=== PATIENT | female | born 1990 | race African-American/Black ===

== ENCOUNTER 2021-06-04 06:17 | Inpatient (IN) ==
[2021-06-04] MEDS ORDERED: LR 1,000 ML IV 1,000 ML IV ONE ×2 (06:39→07:09)
[2021-06-04] MEDS ORDERED: ANCEF 1 GRAM IV PREMIX* 2 G/100 ML BAG IV ONE (06:40)
[2021-06-04] MEDS ORDERED: ZOFRAN INJ 4 MG VIAL ONE (07:02)
[2021-06-04] MEDS ORDERED: PEPCID 20 MG IV PREMIX* 50 ML IV ONE (07:02)
[2021-06-04] MEDS ORDERED: REGLAN INJ 10 MG VIAL ONE (07:02)
[2021-06-04] MEDS ORDERED: TORADOL 30 MG VIAL IVP PRN ×2 (07:03→10:03)
[2021-06-04] MEDS ORDERED: ANCEF VIAL 1 GRAM IVP ONE (07:06)
[2021-06-04] MEDS ORDERED: PEPCID 20 MG IV PREMIX* 20 MG/50 ML BAG IV ONE (07:09)
[2021-06-04] MEDS ORDERED: REGLAN INJ 10 MG VIAL IVP ONE (07:10)
[2021-06-04] MEDS ORDERED: ZOFRAN INJ 4 MG VIAL IVP ONE (07:10)
[2021-06-04] MEDS ORDERED: DECADRON INJ ONE (07:21)
[2021-06-04] MEDS ORDERED: DILAUDID INJ ONE (07:22)
[2021-06-04] MEDS ORDERED: NS 1,000 ML IV 1,000 ML ONE (07:22)
[2021-06-04] MEDS: ZOFRAN INJ 4 MG VIAL IVP PRN ×2 (07:28→16:00)
[2021-06-04 07:50] LABS: BILIRUBIN,URINE NEGATIVE (NEGATIVE); BLOOD/HEMOGLOBIN,URINE NEGATIVE (NEGATIVE); GLUCOSE, URINE NEGATIVE (NEGATIVE); KETONES,URINE NEGATIVE (NEGATIVE); LEUKOCYTE ESTERASE ,URINE 1+ (NEGATIVE); NITRITES,URINE NEGATIVE (NEGATIVE); PROTEIN,URINE NEGATIVE (NEGATIVE); UROBILINOGEN,URINE NORMAL (NORMAL)
[2021-06-04] MEDS ORDERED: D5 1/2 NS 1,000 ML 1,000 ML IV SCH (08:00)
[2021-06-04 08:03] LABS: APPEARANCE,URINE CLEAR (CLEAR); COLOR,URINE YELLOW (YELLOW)
[2021-06-04 08:04] LABS: BACTERIA,URINE TRACE /HPF (NEGATIVE); RBC,URINE NONE SEEN /HPF (0-3); SQUAMOUS EPITHELIAL CELL,UR MANY /HPF (NEGATIVE); YEAST,URINE FEW /HPF (NEGATIVE)
[2021-06-04 08:07] LABS: BASOPHILS % (AUTO) 0.7 % (0.2-1.0); EOSINOPHILS # (AUTO) 0.1 x10^3/uL (0.0-0.2); EOSINOPHILS % (AUTO) 1.3 % (0.9-2.9); HEMOGLOBIN 11.6 g/dL (12.0-16.0); LYMPHOCYTES # (AUTO) 1.9 X10^3/uL (1.3-2.9); LYMPHOCYTES % (AUTO) 40.9 % (21.0-51.0); MEAN CORPUSCULAR HEMOGLOBIN 29.3 pg (27.0-34.0); MEAN CORPUSCULAR HGB CONC 33.2 g/dL (33.0-35.0); MEAN CORPUSCULAR VOLUME 88.1 fL (80.0-100.0); MEAN PLATELET VOLUME 10.8 fL (7.4-11.0); MONOCYTES # (AUTO) 0.6 x10^3/uL (0.3-0.8); MONOCYTES % (AUTO) 12.5 % (0.0-13.0); NEUTROPHILS # (AUTO) 2.1 x10^3/uL (2.2-4.8); NEUTROPHILS % (AUTO) 44.6 % (42.0-75.0); PLATELET COUNT 161 X10^3/uL (150.0-450.0); RED BLOOD COUNT 3.97 X10^6/uL (3.5-5.4); RED CELL DISTRIBUTION WIDTH 14.9 % (11.6-16.5); WHITE BLOOD COUNT 4.7 X10^3/uL (3.6-10.0)
[2021-06-04] MEDS ORDERED: NEO-SYNEPHRINE INJ ONE (08:18)
[2021-06-04] MEDS ORDERED: VERSED ONE (08:18)
[2021-06-04] MEDS ORDERED: EPHEDRINE SULFATE INJ ONE (08:18)
[2021-06-04] MEDS ORDERED: PITOCIN ONE (08:18)
[2021-06-04] MEDS ORDERED: XYLOCAINE 2 % (PLAIN) ONE (08:18)
[2021-06-04] MEDS ORDERED: MARCAINE SPINAL ONE (08:18)
[2021-06-04] MEDS ORDERED: TORADOL 30 MG VIAL ONE (08:18)
[2021-06-04 08:23] LABS: ALANINE AMINOTRANSFERASE 23 Units/L (12-78); ALBUMIN 2.6 g/dL (3.4-5.0); ALKALINE PHOSPHATASE 117 Units/L (46-116); ASPARTATE AMINO TRANSFERASE 21 Units/L (15-37); BLOOD UREA NITROGEN 5 mg/dL (7-18); CALCIUM 8.7 mg/dL (8.5-10.1); CARBON DIOXIDE 23.9 mmol/L (21-32); CHLORIDE 107 mmol/L (98-107); COR CA(FOR HYPOALB) 9.8 mg/dL (8.5-10.1); SODIUM 141 mmol/L (136-145); TOTAL PROTEIN 6.4 g/dL (6.4-8.2); eGFR NON BLACK RACES > 60 (>60)
[2021-06-04 08:24] LABS: GIANT PLATELET RARE; PLATELET MORPHOLOGY COMMENT ABNORMAL (NORMAL)
[2021-06-04] MEDS ORDERED: BENADRYL INJ 50 MG VIAL IVP PRN (10:03)
[2021-06-04] MEDS ORDERED: NARCAN INJ IVP PRN (10:03)
[2021-06-04] MEDS ORDERED: PERCOCET TAB 5/325 MG PO PRN (10:03)
[2021-06-04] MEDS ORDERED: BENADRYL INJ 50 MG VIAL ONE (10:16)
[2021-06-04] MEDS ORDERED: D5 1/2 NS 1,000 ML 1,000 ML with PITOCIN 20 UNITS IV SCH ×2 (11:12)
[2021-06-04] MEDS ORDERED: PHENERGAN INJ 25 MG IM PRN (11:12)
[2021-06-04] MEDS ORDERED: MYLICON TAB 80 MG CHEW PO PRN (11:12)
[2021-06-04] MEDS ORDERED: HYPERRHO S/D (or RHOGAM) IM PRN (11:12)
[2021-06-04] MEDS: TORADOL 30 MG VIAL IVP SCH ×3 (11:43→23:14)
[2021-06-04] MEDS: PERCOCET TAB 5/325 MG PO PRN ×2 (16:00→20:15)
[2021-06-04] MEDS: NORMODYNE TAB 100 MG PO SCH (17:28)
[2021-06-04] MEDS: BENADRYL INJ 50 MG VIAL IVP PRN (20:48)
[2021-06-05] MEDS: PERCOCET TAB 5/325 MG PO PRN ×2 (03:55→10:53)
[2021-06-05 04:50] LABS: HEMATOCRIT 25.6 % (36.0-47.0)
[2021-06-05] MEDS: BENADRYL INJ 50 MG VIAL IVP PRN (05:05)
[2021-06-05 05:07] LABS: HEMOGLOBIN 8.7 g/dL (12.0-16.0)
[2021-06-05] MEDS: TORADOL 30 MG VIAL IVP SCH (06:03)
[2021-06-05] MEDS: NORMODYNE TAB 100 MG PO SCH (08:23)
[2021-06-05] MEDS ORDERED: PRENATAL PLUS PO SCH (09:00)
--- NOTE | 2021-06-05 09:40 | NOTE.PROBC ---
Progress Note OB-C/S Subjective Data Subjective: No complaints, decreased lochia. Tolerating regular diet. No N/V. Ambulating well. Morales draining well. Pain under good control with percocet. Objective Data Result Diagrams: 06/05/21 04:04 06/04/21 07:22 Objective Data: CV= RRR no MRG Lungs=CTA Bilaterally Abd=(+) BS, soft, ND, appropriately tender near incision. Bandage removed. Incision clean/dry/intact, no erythema, no bleeding, no discharge. Dermabond/Stitches intact. Fundus firm/NT/ at { } cm below umbilicus. Ext= No edema, NT, No Cords. Graduated Compression Stockings/Sequential Compression Devices Bilaterally. Plan (1) Hypertension affecting in third trimester: Plan: stable and requesting an early d/c (2) Gestational diabetes: (3) Postcesarean section: (4) Anemia:
[2021-06-05] MEDS ORDERED: TORADOL 15 MG VIAL IVP PRN (10:00)
[2021-06-05 11:40] VITALS: BP 152/82
== END 2021-06-05 12:00 | disposition home or self-care (01) | DRG 785 ==
LOC: LD 06:17 → MED/SURG 10:20
PROVIDERS: ADMIT Obstetrics & Gynecology; ATTEND Obstetrics & Gynecology
DX: O99.02 Anemia complicating childbirth; Z3A.37 37 weeks gestation of pregnancy; Z37.0 Single live birth; O34.211 Maternal care for low transverse scar from previous cesarean delivery; Z30.2 Encounter for sterilization; O24.419 Gestational diabetes mellitus in pregnancy, unspecified control; O13.3 Gestational [pregnancy-induced] hypertension without significant proteinuria, third trimester; N85.8 Other specified noninflammatory disorders of uterus; Z20.822 Contact with and (suspected) exposure to COVID-19